=== PATIENT | male | born 1950 | race Caucasian/White ===

== ENCOUNTER → 2017-06-15 | Outpatient (CLI) | payer BC ==
[~2017-06-15] MED LIST: CARAFATE 1 GM TA1 G1; CELEBREX 200 M200 M1; CLEOCIN HCL300 MG PO; COZAAR 50 MG TA50 M2; ERYTHROMYCIN E3.5 G1 OPHTHALMIC; HYDROCHLOROTHIA25 M2; NORCO 5-325 TA1 EACH PO; NORVASC5 MG; OMEPRAZOLE40 MG; PERCOCET 5-3251 EACH PO; PROZAC20 MG; RANITIDINE 150150 M1; TRAMADOL 50 MG50 MG
== END ==
LOC: M.ULTRA 07:29
DX: N17.9 Acute kidney failure, unspecified (principal); N28.1 Cyst of kidney, acquired

== ENCOUNTER 2017-09-10 21:03 | Emergency (ER) | payer BC ==
[~2017-09-10] VITALS: Ht 175.3 cm; Wt 74.8 kg
[~2017-09-10 21:03] MED LIST changes: -CARAFATE 1 GM TA1 G1; -CELEBREX 200 M200 M1; -CLEOCIN HCL300 MG PO; -COZAAR 50 MG TA50 M2; -HYDROCHLOROTHIA25 M2; -NORCO 5-325 TA1 EACH PO; -NORVASC5 MG; -OMEPRAZOLE40 MG; -PROZAC20 MG; -RANITIDINE 150150 M1; -TRAMADOL 50 MG50 MG
[2017-09-10] MEDS ORDERED: OMEPRAZOLE40 MG (21:23)
[2017-09-10] MEDS ORDERED: TRAMADOL 50 MG50 MG (21:23)
[2017-09-10] MEDS ORDERED: RANITIDINE 150150 M1 (21:23)
[2017-09-10] MEDS ORDERED: CARAFATE 1 GM TA1 G1 (21:23)
[2017-09-10] MEDS ORDERED: CELEBREX 200 M200 M1 (21:24)
[2017-09-10] MEDS ORDERED: PROZAC20 MG (21:24)
[2017-09-10] MEDS ORDERED: COZAAR 50 MG TA50 M2 (21:24)
[2017-09-10] MEDS ORDERED: HYDROCHLOROTHIA25 M2 (21:25)
[2017-09-10] MEDS ORDERED: NORVASC5 MG (21:25)
[2017-09-10 22:09] LABS: HEMATOCRIT 30.9 % (42.0-52.0); HEMOGLOBIN 9.6 gm/dL (14.0-18.0); MCHC 31.2 g/dL (28.0-37.0); MCV 77.2 fL (80.0-100.0); MPV 7.8 fl. (7.2-11.1); NUCLEATED RBCS 0 /100WBC; PLATELET COUNT* 228 thou/uL (150-400); RBC 4.01 mil/uL (4.50-6.00); RDW-CV 19.1 % (10.5-14.5); WBC 11.1 thou/uL (4.0-11.0)
[2017-09-10 22:21] LABS: CALCIUM 8.1 mg/dL (8.5-10.1); CREATININE 1.4 mg/dL (0.6-1.3); POTASSIUM 4.1 mmol/L (3.5-5.1)
[2017-09-10 22:26] LABS: ALBUMIN 2.7 g/dL (3.4-5.0); TOTAL BILIRUBIN 0.2 mg/dL (<0.1-1.0); TOTAL PROTEIN 5.7 g/dL (6.4-8.2); URIC ACID* 5.3 mg/dL (2.6-7.2)
[2017-09-10 23:03] LABS: ABSOLUTE EOSINOPHILS 0.3 thou/uL (0.0-0.7); ABSOLUTE LYMPHOCYTES 0.8 thou/uL (0.8-5.3); ABSOLUTE MONOCYTES 0.8 thou/uL (0.0-1.2); ABSOLUTE NEUTROPHILS 9.2 thou/uL (1.6-8.1); ATYPICAL LYMPHS 1 %; PLATELET ESTIMATE ADEQUATE
[2017-09-10 23:04] LABS: ANISOCYTOSIS Occasional; CLUMPED PLTS FEW; HYPOCHROMASIA 1+; TOXIC GRANULATION 1+
[2017-09-10] MEDS ORDERED: CLEOCIN HCL300 MG PO (23:15)
[2017-09-10] MEDS ORDERED: NORCO 5-325 TA1 EACH PO (23:15)
[2017-09-10 23:23] LABS: ESR (SEDRATE) 27 mm/hr (0-20)
[2017-09-11] VITALS: BP 128/71
== END 2017-09-11 00:02 | disposition home or self-care (01) ==
LOC: M.ERS 21:03
PROVIDERS: Nurse Practitioner Family
DX: L03.114 Cellulitis of left upper limb (principal); M70.22 Olecranon bursitis, left elbow; I10 Essential (primary) hypertension; F32.9 Major depressive disorder, single episode, unspecified; Z98.890 Other specified postprocedural states; Z88.5 Allergy status to narcotic agent; Y93.89 Activity, other specified

== ENCOUNTER 2018-06-28 05:41 | Emergency (ER) | payer BC ==
[~2018-06-28] VITALS: Ht 175.3 cm; Wt 65.8 kg
[~2018-06-28 05:41] MED LIST changes: +CARAFATE 1 GM TA1 G1; +CELEBREX 200 M200 M1; +CLEOCIN HCL300 MG PO; +COZAAR 50 MG TA50 M2; +HYDROCHLOROTHIA25 M2; +NORCO 5-325 TA1 EACH PO; +NORVASC5 MG; +OMEPRAZOLE40 MG; +PROZAC20 MG; +RANITIDINE 150150 M1; +TRAMADOL 50 MG50 MG
[2018-06-28] MEDS ORDERED: RANITIDINE15 MG/1 ML PO (05:51)
[2018-06-28] MEDS ORDERED: CARAFATE 11 GM/10 M1 PO (05:52)
[2018-06-28] MEDS ORDERED: GAVISCON ES CH1 EAC1 PO (05:53)
[2018-06-28] MEDS ORDERED: TUSSIONEX PENN115 ML PO (06:35)
[2018-06-28] MEDS ORDERED: PREDNISONE50 MG PO (06:35)
[2018-06-28] MEDS ORDERED: PROAIR HFA8.5 GM INH (06:35)
[2018-06-28 06:56] LABS: INFLUENZA A ANTIGEN None Detected (None Detect); INFLUENZA B ANTIGEN None Detected (None Detect)
[2018-06-28 07:17] VITALS: BP 141/83
== END 2018-06-28 07:18 | disposition home or self-care (01) ==
LOC: M.ERS 05:41
PROVIDERS: Emergency Medicine
DX: J06.9 Acute upper respiratory infection, unspecified (principal); I10 Essential (primary) hypertension; F32.9 Major depressive disorder, single episode, unspecified; G47.00 Insomnia, unspecified; Z88.5 Allergy status to narcotic agent